=== PATIENT | male | born 1940 | race Caucasian/White ===

== ENCOUNTER 2017-02-13 10:00 | Inpatient (IN) | payer MEDICARE, BC ==
[~2017-02-13] VITALS: Ht 175.3 cm; Wt 93.9 kg
--- NOTE | ~2017-02-13 | DS ---
PATIENT'S NAME: MARY PARK [facility] AGE: 76 Y [address] ROOM: [address] [place], [place] [address] LOCATION: GPCU ADMIT DATE: 03/14/2017 Discharge Summary DISCHARGE DATE: 03/17/2017 FAMILY PHYSICIAN: Nora Hernandez MD ATTENDING PHYSICIAN: Zachariah Prescott FINAL DIAGNOSES: Abdominal aortic aneurysm postop endovascular aortic aneurysm repair. SECONDARY DIAGNOSES: 1. Diabetes mellitus, type 2. 2. Essential hypertension. 3. Hypoxia. 4. Peripheral vascular disease. 5. Hypothyroidism. PROCEDURES: ER by Dr. Prescott on 03/14/2017. CONSULTATIONS: Hospitalist for medication management. HOSPITAL COURSE: This is a 76-year-old male, admitted to [facility] on 03/14/2017, after endovascular repair of abdominal aortic aneurysm greater than 5 cm. The patient with a known history of thltqng-[id number] bypass occluded left iliac and right iliac with stent extending into the aneurysmal sac. See the patient's history and physical for full patient details. The patient underwent EVAR without postop complications. At the end of the case, graft was in good position with no endoleak. His previously placed common iliac stent was dislodged and parked in the suprarenal position not affecting any renal or visceral blood flow. Access was obtained via the right common femoral artery as well as the left brachial artery. Following procedure, the patient was admitted to the intensive care unit for monitoring of surgical sites, telemetry, vitals, labs, pain management, medication administration, and nursing assistance. Hospitalists were consulted for medication management. On postop day #0, the patient with elevated blood pressure and received p.r.n. hydralazine and labetalol. Home blood pressure medications were adjusted including lisinopril and amlodipine. The patient was started on sliding scale insulin and continued on IV Ancef every 8 hours x24 hours. On postop day #1, the patient was transferred to PCU status and dressings were found to be clean, dry, and intact without hematoma and distal flow intact. The patient was up to chair and art line removed. On postop day #2, incision was found to be clean and free of infection, surrounding ecchymosis likely related to use of aspirin and Plavix. The patient began working with Physical Therapy and Occupational Therapy without difficulty. A trend ox was ordered overnight and results are as follows. The patient has evidence of significant nocturnal hypoxia and PATIENT'S NAME: MARY PARK [facility] AGE: 76 Y [address] ROOM: [id number] [place], [place] [address] LOCATION: GPCU ADMIT DATE: 03/14/2017 Discharge Summary DISCHARGE DATE: 03/17/2017 FAMILY PHYSICIAN: Nora Hernandez MD ATTENDING PHYSICIAN: Zachariah Prescott would qualify for supplemental oxygen as per Medicare criteria. On postop day #3, the patient was found in a stable condition to be discharged home. He was discharged on one week of Levaquin as prophylaxis. The patient with a history of fem-fem bypass with graft if this were to become infected, it would have to be permanently removed. DISCHARGE ORDERS: The patient is to be discharged home on a diabetic diet. He is to avoid heavy lifting for 2 weeks, otherwise activity as tolerated. He is to follow up with Kayleen Vanegas APRN in 2 weeks on 04/04/[address] [facility]. He is to apply daily dry dressing to right groin for 1 week and then leave open to air. He is supposed to have home oxygen at night. He is to report any signs or symptoms of infection including redness, swelling, fevers, chills, drainage. DISCHARGE MEDICATIONS: 1. Allopurinol 300 mg p.o. twice daily. 2. Aspirin 81 mg p.o. daily. 3. Wellbutrin SR 150 mg p.o. daily. 4. Crestor 5 mg p.o. daily. 5. Cymbalta 60 mg p.o. daily. 6. Neurontin 600 mg p.o. every night at bedtime. 7. Lisinopril 10 mg p.o. daily. 8. Lopressor 25 mg p.o. daily. 9. Norvasc 5 mg p.o. daily. 10. Super B one dose intramuscularly every 30 days. 11. Ditropan 5 mg p.o. twice daily. 12. Plavix 75 mg p.o. daily. 13. Prednisone 5 mg p.o. daily with food. 14. Harrison oil 1000 mg p.o. 3 times daily. 15. Albuterol 2 puffs inhaled every 4 hours as needed shortness of breath. 16. Symbicort 160/4.5 mcg two puffs daily. 17. Levothroid 100 mcg p.o. daily before breakfast. 18. Tylenol 325 mg p.o. every 4 hours pain. 19. Vitamin B12 1000 mcg intramuscularly every 7 days. 20. Glimepiride 2 mg p.o. twice daily. 21. MiraLax powder 17 g p.o. every 12 hours. 22. Richmond 5/325 1 to 2 tabs every 4 hours as needed for pain. 23. Levaquin 750 mg p.o. day one and then one 250 mg tablet p.o. every day x6 days. DISPOSITION: The patient discharged home in stable condition. He is to follow discharge orders as prescribed. Education about discharge including incision care, medications prescriptions, diet and activity, and followup appointments given to the patient. The patient verbalized understanding the plan and had no further questions or concerns. He is to follow discharge PATIENT'S NAME: MARY PARK [facility] AGE: 76 Y [address] ROOM: [place] [address] LOCATION: GPCU ADMIT DATE: 03/14/2017 Discharge Summary DISCHARGE DATE: 03/17/2017 FAMILY PHYSICIAN: Nora Hernandez MD ATTENDING PHYSICIAN: Zachariah Prescott orders as prescribed. KAYLEEN IRVING VANEGAS FOR ZACHARIAH PRESCOTT MD TO/modl /[id number] d: 03/23/17 0248 t: 03/28/17 0853, DISCHARGE SUMMARY
--- NOTE | ~2017-02-13 | PUL ---
PATIENT'S NAME: MARY PARK [facility] AGE: 76 Y [address] ROOM: [address] [address] LOCATION: GPCU ADMIT DATE: 03/14/2017 Pulmonary DISCHARGE DATE: 03/17/2017 FAMILY PHYSICIAN: Nora Hernandez MD ATTENDING PHYSICIAN: Zachariah Prescott NAME OF PROCEDURE: Overnight Pulse Oximetry DATE OF PROCEDURE: March 16 to March 17, 2017 REASON FOR EXAM: Nocturnal hypoxemia RESULTS: The test was performed on room air. The recording time and total valid sampling time was 8 hours, 25 minutes and 12 seconds. The highest pulse 88, lowest pulse was 62, with mean pulse was 75. The highest SpO2 was 92%, lowest SpO2 was 83%, with mean SpO2 of 87.2% The patient spent 7 hours, 7 minutes, and 8 seconds with SpO2 less than 89%, representing 84.5% of the total sleep time. The desaturation event index was normal at 1.2. PHYSICIAN INTERPRETATION: The patient has evidence of significant nocturnal hypoxia and would qualify for supplemental oxygen as per Medicare criteria. MD CATIE APONTE/pretty /[id number] dtt: 03/22/17 0722 , RUPINDER HALL dtd: 03/21/17 1442
--- NOTE | ~2017-02-13 | OR ---
PATIENT'S NAME: MARY PARK [facility] AGE: 76 Y [address] ROOM: [address] [place], [place] [address] LOCATION: GICU ADMIT DATE: 03/14/2017 OR/Procedure Report DISCHARGE DATE: FAMILY PHYSICIAN: Nora Hernandez MD ATTENDING PHYSICIAN: ZACHARIAH PRESCOTT SURGEON: Zachariah Prescott MD SHANK ARCHER: DATE OF PROCEDURE: 03/14/2017 PREOPERATIVE DIAGNOSIS: A 5.5 cm abdominal aortic aneurysm. POSTOPERATIVE DIAGNOSIS: A 5.5 cm abdominal aortic aneurysm. PROCEDURE PERFORMED: EVAR repair of the abdominal aortic aneurysm. BATCH DUMPER: Kyle. ANESTHESIA: General. ESTIMATED FLUID LOSS: 200 mL. OPERATIVE FINDINGS: Graft in good position with no endoleak. Previously placed common iliac stent was dislodged and parked in the suprarenal position, not affecting any visceral blood flow. DESCRIPTION OF PROCEDURE: The patient was brought to the [facility] Operator, placed under general anesthesia, and prepped and draped in a sterile manner. A preoperative time-out was performed. The patient had placement of an arterial line as well as a Justin catheter for monitoring. We made a transverse brachial incision because the patient had an occluded left common iliac and would require us to be able to take pictures from the arm. We dissected down the fascia, and incised the fascia in a longitudinal manner. We dissected out the brachial artery in a 360-degree fashion. We then made a vertical incision in the groin. We were careful to avoid contacting the fem-fem bypass, dissected down the fascia, and incised the fascia in a longitudinal manner. We dissected out the common femoral artery. We then gave 5000 units of heparin. We will give a total of 7000 for the entire case. We gained access to both the common femoral as well as the brachial artery with micropuncture kits. We placed a 5-German sheath in the brachial artery and then placed an 8- German in the right groin, which was eventually swept out for an 18-German sheath to complete the case. We did this over a Lunderquist wire. We placed a 0.035 Glidewire up to the aorta, into the ascending aorta, and then used a marking pigtail to transfer it to a Lunderquist wire. Once this was done and positioned, we performed a series of aortograms to identify location of the renals, and to measure the distance for graft. We were creating an unibody- PATIENT'S NAME: MARY PARK [facility] AGE: 76 Y [address] ROOM: [id number] [place], [place] [address] LOCATION: [facility] ADMIT DATE: 03/14/2017 OR/Procedure Report DISCHARGE DATE: FAMILY PHYSICIAN: Nora Hernandez MD ATTENDING PHYSICIAN: ZACHARIAH PRESCOTT type graft. Once we had performed our measurements and located the internal iliac, we deployed our first limb, which was a 16 x 14 Constantine limb. Once this was in position, we then put in our main body device, which was a 28 x 14 x 16. We used a Constantine 250 balloon to angioplasty the top portion as well as the overlaps of the two pieces, as well as the distal landing zone. We performed an aortogram, and showed that the renals were patent and there was no leak into the aneurysmal sac. However, we did notice that the patient, many years ago, had a common iliac stent which was extending into the aneurysmal sac. We initially thought we had traversed this stent, but it appeared when we put our first prosthesis in, that the stent migrated to above the renals. This was a free-cell stent. We performed a series of aortograms to confirm that there was no impeding flow into the renal vessels or any of the visceral vessels. We did not make an attempt to snare this because this was not a covered stent, and it was not impeding any structures. We removed the sheath from the brachial and repaired the artery with 6-0 interrupted stitches. We removed the sheath from the common femoral. There was some minor dissection of the plaque in that artery, so we repaired that with the patch angioplasty with bovine pericardial patch. All clamps were removed. Flow was confirmed in the feet with Dopplers. There were strong radial and ulnar signals at the end of the case in the hand. WOUND CLOSURE: All the layers were closed with 2-0 and 3-0 Vicryls. Skin was closed with running 4-0 Monocryl. POSTOPERATIVE DISPOSITION: The patient tolerated the procedure well, and was transferred to the Recovery Room and then up to the ICU. ZACHARIAH PRESCOTT MD FKM/modl /[id number] d: 03/14/172005 t: 03/16/17 1054, OPERATIVE SUMMARY
[2017-03-07] MEDS ORDERED: ZYLOPRIM300 MG PO (09:58)
[2017-03-07] MEDS ORDERED: ASPIRIN EC81 MG PO (09:58)
[2017-03-07] MEDS ORDERED: CYMBALTA60 MG PO (10:01)
[2017-03-07] MEDS ORDERED: WELLBUTRIN SR150 MG PO (10:01)
[2017-03-07] MEDS ORDERED: CRESTOR5 MG PO (10:01)
[2017-03-07] MEDS ORDERED: NEURONTIN300 MG PO ×2 (10:02)
[2017-03-07] MEDS ORDERED: HYDROCODON-ACE1 EAC4 PO (10:03)
[2017-03-07] MEDS ORDERED: PRINIVIL OR ZES10 MG PO (10:03)
[2017-03-07] MEDS ORDERED: LOPRESSOR25 MG PO (10:03)
[2017-03-07] MEDS ORDERED: NORVASC5 MG PO (10:04)
[2017-03-07] MEDS ORDERED: DITROPAN5 MG PO (10:05)
[2017-03-07] MEDS ORDERED: SUPER B IM (10:05)
[2017-03-07] MEDS ORDERED: PLAVIX75 MG PO (10:05)
[2017-03-07] MEDS ORDERED: DELTASONE5 MG PO (10:05)
[2017-03-07] MEDS ORDERED: PRIMROSE OIL PO (10:06)
[2017-03-07] MEDS ORDERED: PROAIR RESPICL90 MCG INH (10:07)
[2017-03-07] MEDS ORDERED: SYMBICORT 16010.2 GM INH (10:07)
[2017-03-07] MEDS ORDERED: LEVOTHROID (S100 MCG PO (10:08)
[2017-03-07] MEDS ORDERED: TYLENOL325 MG PO (10:08)
[2017-03-07] MEDS ORDERED: VITAMIN B-1000 MCG/M IM (10:09)
[2017-03-08] MEDS ORDERED: GLIMEPIRIDE4 MG PO (14:48)
[2017-03-14 07:02] LABS: BASOPHIL # 0.1 K/uL (0.0-0.2); BASOPHIL % 0.7 %; EOSINOPHIL # 0.3 K/uL (0.0-0.5); EOSINOPHIL % 3.2 %; HEMATOCRIT 36.7 % (37.0-53.0); HEMOGLOBIN 12.4 g/dL (11.0-16.0); IMMATURE GRANULOCYTE # 0.1 K/uL (0.0-0.3); IMMATURE GRANULOCYTE % 0.7 %; LYMPHOCYTE # 2.7 K/uL (0.8-4.0); LYMPHOCYTE % 29.7 %; MCH 30.5 pg (27.0-34.0); MCHC 33.8 gm/dL (32.0-36.5); MCV 90.2 fl (83.0-98.0); MONOCYTE # 0.7 K/uL (0.0-1.0); MONOCYTE % 7.1 %; MPV 10.3 fl (9.4-12.4); NEUTROPHIL # (ANC) 5.4 K/uL (1.4-9.0); NEUTROPHIL % 58.6 %; NRBC % 0 /100WBC (0-0.00); PLATELET COUNT 194 K/uL (150-450); RBC 4.07 M/uL (3.50-5.50); RDW-CV 14.2 % (11.9-14.6); WBC 9.2 K/uL (4.0-11.0)
[2017-03-14 07:19] LABS: ALBUMIN 3.5 gm/dL (3.5-5.0); CALCIUM 8.9 mg/dL (8.5-10.5); CREATININE 1.4 mg/dL (0.6-1.3); TOTAL BILIRUBIN 0.7 mg/dL (0.0-1.5); TOTAL PROTEIN 6.9 g/dL (6.0-8.4)
[2017-03-14 15:32] LABS: ANION GAP 12.4 (10.0-19.0); CALCIUM 8.2 mg/dL (8.5-10.5); CREATININE 1.5 mg/dL (0.6-1.3); POTASSIUM 5.4 mMol/L (3.7-5.1)
[2017-03-15 03:20] LABS: ANION GAP 11.4 (10.0-19.0); CALCIUM 8.1 mg/dL (8.5-10.5); CREATININE 1.6 mg/dL (0.6-1.3)
[2017-03-15 03:26] LABS: POTASSIUM 4.4 mMol/L (3.7-5.1)
[2017-03-15 03:37] LABS: BASOPHIL % 0.2 %; HEMATOCRIT 32.7 % (37.0-53.0); HEMOGLOBIN 11.1 g/dL (11.0-16.0); IMMATURE GRANULOCYTE # 0.1 K/uL (0.0-0.3); IMMATURE GRANULOCYTE % 0.9 %; LYMPHOCYTE % 7.5 %; MCH 30.8 pg (27.0-34.0); MCHC 33.9 gm/dL (32.0-36.5); MCV 90.8 fl (83.0-98.0); MONOCYTE % 7.7 %; MPV 10.5 fl (9.4-12.4); NEUTROPHIL # (ANC) 10.9 K/uL (1.4-9.0); NEUTROPHIL % 83.7 %; NRBC % 0 /100WBC (0-0.00); PLATELET COUNT 179 K/uL (150-450); RDW-CV 14.2 % (11.9-14.6)
[2017-03-17 06:00] LABS: ALBUMIN 2.7 gm/dL (3.5-5.0); ANION GAP 12.2 (10.0-19.0); CALCIUM 8.4 mg/dL (8.5-10.5); CREATININE 1.7 mg/dL (0.6-1.3); MAGNESIUM 1.8 mg/dL (1.8-2.6); PHOSPHORUS 3.2 mg/dL (2.5-4.9); POTASSIUM 4.2 mMol/L (3.7-5.1)
[2017-03-17] MEDS ORDERED: MIRALAX17 GM PO (11:15)
[2017-03-17] MEDS ORDERED: NORCO 5-325 TA1 EACH PO (11:17)
[2017-03-17] MEDS ORDERED: LEVAQUIN 250 M250 MG PO (11:22)
== END 2017-03-17 14:00 | disposition disaster alternative care site (69) | DRG 269 ==
LOC: GPCU 03-14 05:52 → GICU 03-14 05:52 → GPCU 03-15 15:36
PROVIDERS: Internal Medicine; ADMIT Surgery Vascular Surgery
PROC: 04V03DZ Restriction of Abdominal Aorta with Intraluminal Device, Percutaneous Approach (ICD-10-PCS; principal; 2017-03-14)
PROC: 3E0F7GC Introduction of Other Therapeutic Substance into Respiratory Tract, Via Natural or Artificial Opening (ICD-10-PCS; 2017-03-16)
DX: I71.4 Abdominal aortic aneurysm, without rupture (principal); E11.65 Type 2 diabetes mellitus with hyperglycemia; E03.9 Hypothyroidism, unspecified; I10 Essential (primary) hypertension; I73.9 Peripheral vascular disease, unspecified; R09.02 Hypoxemia
CPT/HCPCS: C1725; C1769; C1874; C1894; J0360; J0690; J1100; J1644; J1650; J2001; J2405; J2720; J3420; J7030; J7512